=== PATIENT | female | born 1965 | race Caucasian/White ===

== ENCOUNTER 2017-08-06 14:00 | Inpatient (IN) | payer MEDICARE, MEDICAID ==
[~2017-08-06] VITALS: Ht 162.6 cm; Wt 139.0 kg
[2017-08-07] MEDS ORDERED: AMLO10 PO (15:00)
[2017-08-07] MEDS ORDERED: RANI300T PO (15:00)
[2017-08-07] MEDS ORDERED: AMBI10TA PO (15:00)
[2017-08-07] MEDS ORDERED: SOMA350T PO (15:00)
[2017-08-07] MEDS ORDERED: ALBUAER3 INH (15:00)
[2017-08-07] MEDS ORDERED: ALPR1TAB3 PO (15:00)
[2017-08-07] MEDS ORDERED: FURO1TAB62 PO (15:00)
[2017-08-07] MEDS ORDERED: ATOR10TA15 PO (15:00)
[2017-08-07] MEDS ORDERED: HYDR-3583 PO (15:00)
[2017-08-07] MEDS ORDERED: CELE20TA PO (15:00)
--- NOTE | 2017-08-09 15:26 | MH ---
cc: Ira COLEMAN M.D. DATE OF ADMISSION: 08/16/2017 ADMISSION DIAGNOSIS Osteoarthritic degeneration left knee, now being admitted for left total knee arthroplasty. ADMISSION HISTORY AND PHYSICAL This pleasant, morbidly obese 52-year-old female is being admitted today for left total knee arthroplasty due to severe painful osteoarthritic degeneration left knee. OTHER PAST HISTORY The patient has a history of hypertension, anxiety. CURRENT MEDICATIONS Include: 1. Amlodipine. 2. Omeprazole. 3. Lipitor. 4. [place]. 5. Xanax. PAST SURGERIES 1. Right total knee arthroplasty 2 years ago. 2. She also has had a cholecystectomy in the past. REVIEW OF SYSTEMS Noncontributory. FAMILY HISTORY Noncontributory. SOCIAL HISTORY She does not smoke or drink. ALLERGIES No known allergies. PHYSICAL EXAMINATION GENERAL: We find a 52-year-old female, well-developed, well-nourished, oriented x3, complains of pain in her left knee. VITAL SIGNS: Blood pressure 138/84, pulse 68 and regular, respirations 18, temperature 98.2, pulse oximetry 98% on room air. HEENT: Eyes PERRLA, EOMI. Ears, nose, mouth clear. NECK: Supple. LUNGS: Clear. HEART: Regular rate. ABDOMEN: Soft. Positive bowel sounds and nontender. EXTREMITIES: Reveal the left knee to be tender with crepitance on range of motion. Neurovascularly intact to her toes. IMPRESSION AT THIS TIME Severe painful osteoarthritic degeneration, left knee. PLAN Admission for left total knee arthroplasty today. The patient is given a prescription for postop pain and anticoagulation control in the office. Ira Coleman MD JRYesica/TLL /1:06 PM /3:12 PM
[2017-08-16] MEDS ORDERED: DEXAMETHASONE SOD PHOS 20 MG/5 ML VIAL IV PUSH SCH (06:30)
[2017-08-16] MEDS ORDERED: CHLORHEXIDINE GLUCONATE 2 % 1 PACK (2 CLOTHS) TOPICAL PRN (06:30)
[2017-08-16] MEDS ORDERED: CHLORHEXIDINE GLUCONATE 4% SOLN 120 ML BTL TOPICAL SCH (06:30)
[2017-08-16] MEDS ORDERED: SODIUM CHLORID 0.9% 500 ML IV PRN (06:30)
[2017-08-16] MEDS ORDERED: LACTATED RINGER'S 1000 ML IV PRN (06:30)
[2017-08-16] MEDS ORDERED: ceFAZolin 2 GM PREMIX 50 ML IV SCH (06:30)
[2017-08-16] MEDS ORDERED: VANCOMYCIN 1000 MG/NS 250 ML (for <70 kg) IV SCH ×2 (06:30)
[2017-08-16] MEDS ORDERED: METOPROLOL TARTRATE 25 MG TAB PO PRN (06:30)
[2017-08-16] MEDS ORDERED: POVIDONE IODINE 5% (ANTISEPSIS KIT) 4 APPLICATIONS EACH NARE PRN (06:30)
[2017-08-16] MEDS ORDERED: SODIUM CHLOR 0.9% 250 ML INJ 250 ML ONE ×2 (06:51→06:54)
[2017-08-16] MEDS ORDERED: BUPIVACAINE HCL PF 0.5% 30 ML VIAL ONE (06:58)
[2017-08-16] MEDS ORDERED: DEXAMETHASONE SOD PHOS PF 10 MG/ML VIAL ONE (06:58)
[2017-08-16] MEDS ORDERED: PROPOFOL 500 MG/50 ML INJ 0 ML ONE (06:58)
[2017-08-16] MEDS ORDERED: ceFAZolin INJ 1,000 MG VIAL ONE (07:01)
--- NOTE | 2017-08-16 07:55 | HHI.FF ---
Face to Face Verification Diagnosis: (1) Status post total left knee replacement Physical Therapy Gait training Knee: Total knee, Protocol: Left, Full weight bearing Canvas Knee Splint: When in bed & 2 pillows btw thighs Nursing RN: 3 days/week x 2 weeks Nursing: Dressing changes Dressing Changes: Daily dressing change, 4x4s, Gauze, Paper tape I have seen patient Florence Tafoya on 08/16/17. My clinical findings support the need for the requested home health care services because: Limited ability to care for self High risk of falls I certify that my clinical findings support that this patient is homebound because: Unsteady gait/balance Ira Coleman MD Aug 16, 2017 07:55
[2017-08-16] MEDS ORDERED: WALKER WHEELS/F1 MIS (07:57)
[2017-08-16] MEDS ORDERED: ADJUSTABLE COMM1 MIS (07:57)
[2017-08-16] MEDS ORDERED: CPMMACHINE (07:57)
[2017-08-16] MEDS ORDERED: TRANEXAMIC ACID INJ 0 MG in SODIUM CHLORIDE 0.9% INJ 100 ML IV SCH (08:00)
[2017-08-16] MEDS ORDERED: FUROSEMIDE 20 MG TAB PO PRN (08:00)
[2017-08-16] MEDS ORDERED: EXPAREL PERI-ARTICULAR INJECTION (TOTAL VOL. 120 ML) P-ARTICULR SCH ×2 (08:00)
[2017-08-16] MEDS ORDERED: SODIUM CHLORIDE 0.9% IV SCH ×2 (08:00→11:00)
[2017-08-16] MEDS ORDERED: TRANEXAMIC ACID IV SCH ×2 (08:00→11:00)
[2017-08-16] MEDS ORDERED: diphenhydrAMINE HCL 50 MG/ML VIAL IV PUSH PRN (08:15)
[2017-08-16] MEDS ORDERED: Post-op Orders (for Pharmacy) XX ONE (08:15)
[2017-08-16] MEDS ORDERED: ONDANSETRON HCL 4 MG/2 ML VIAL IVP PRN (08:15)
[2017-08-16] MEDS ORDERED: NALOXONE HCL 0.4 MG/ML AMP IV PUSH PRN (08:15)
[2017-08-16] MEDS ORDERED: ALBUTEROL SULFATE 90 MCG/ACT HFA 8 GM INHALER INH PRN (08:15)
[2017-08-16] MEDS ORDERED: ACETAMINOPHEN 325 MG TAB PO PRN (08:15)
[2017-08-16] MEDS ORDERED: HYDROmorphone HCL PF 2 MG/ML VIAL IV PUSH PRN (08:15)
[2017-08-16] MEDS ORDERED: DO NOT ADM ANY ANTICOAGULANT DRUGS PRN (11:57)
--- NOTE | 2017-08-16 11:59 | MP ---
cc: Ira COLEMAN M.D. DATE OF SURGERY 08/16/2017 PREOPERATIVE DIAGNOSIS Osteoarthritic degeneration left knee and morbidly obese. POSTOPERATIVE DIAGNOSIS Osteoarthritic degeneration left knee and morbidly obese. SURGERY PERFORMED Left total knee arthroplasty using Consensus components with Bespoke protocol. Sizes were 4 femur, 1 tibia, a 14 insert and a size 1 patella with two batches DePuy cement. SURGEON Dr. Coleman ASBESTOS SURVEYOR PRIYANKA Land ANESTHESIA General intubation and block. PROCEDURE WAS FOLLOWS After successful induction of anesthesia, the patient is placed on the operating room table in the supine position. The knee is prepped and draped in the usual manner. A tourniquet is inflated at the upper thigh and set to 300 mmHg pressure after exsanguination of the lower extremity. A longitudinal incision is made extending from 3 inches proximal to the superior pole of the patella, across the patella in longitudinal fashion, and down past the insertion of the tibial tubercle into the proximal tibia. The incision is carried down through subcutaneous tissue along the medial aspect of the patella and retinaculum, down through the capsule to expose the knee joint. The patella and patellar tendon are freed up enough to allow the patella to be inverted and retracted off the lateral side of the knee joint. The knee joint is left exposed. Small osteophytes are removed. All soft tissue is removed to allow proper position of the femoral and tibial cutting jig guide. The first femoral jig is then inserted along the distal end of the femur after first measuring to decide whether this is a small, medium, or large component. The notch is then drilled and the tibial cutting guide inserted into the femoral cutting guide, along with the ankle brace to allow for proper measurement of the tibial cutting surface that needed to be resected. Pins are inserted into the tibial cutting jig and femoral cutting jig to hold them in place. An oscillating saw is then used to resect the surface of the tibia. The surface of the tibia is then completely removed using sharp and blunt dissection. The anterior and posterior cuts of the femur are then made as well using an oscillating saw through the cutting guide. All guides are then removed and the varus/valgus angulation cutting guide applied to the femur for proper measurement of the proper amount of valgus. The anterior cutting guide for the femur is then inserted at the anterior femoral cuts made. Next, the first block trial is inserted into the femur to allow for proper condyle drill holes to be made which are then made followed by removal of the bone between the condyles using an oscillating saw as well as the bone removed at the most posterior surface of the condyle. After this, this guide is removed and the chamfer cuts made using the chamfer cutting guide from both anterior and posterior. Next, the femoral trial is then inserted, the tibial surface reflected anterior to expose the tibial surface and a tibial stem guide is inserted after first measuring for a standard, standard plus, large, or large plus surface to be used. After the stem is impacted the trial tibial surface is applied followed by the trial meniscal components. After full range of motion is found with the appropriate length meniscal components varying the patella is prepared by resecting the posterior aspect of the patella using an oscillating saw, inserting a trial. The trial is then removed and the cruciate cutting guide applied using the bur to cut the cruciate cuts. After cruciate cuts are made all trials are removed. The wound is irrigated copiously with antibiotic solution and Water-Pik and the actual components inserted into place using the aforementioned components. After the cement has hardened and the components are found to have full range of motion with no instability. No tourniquet was utilized throughout this case. A lateral retinacular release was necessary to allow the patella to track medially and some of it was repaired using interrupted #1 Vicryl suture. 120 cc's of Exparel was used around the knee joint for extra pain control. Deep fascia approximated with running #2 Quill. Subcutaneous tissue approximated in layers using 2-0 and 3-0 Monocryl sutures, Steri-Strips, and a sterile dressing and knee immobilizer. No drain was utilized. An extra hour of surgical time was needed as no tourniquet could be used on this case. Bleeding had to be controlled. The tissues had to be closed in multiple layers and also opened that way as the patient's BMI was 58.2. The patient's estimated blood loss was 450 cc's. The sponge and suture counts were correct. The patient tolerated the procedure well and left the operating room in satisfactory condition. PRIYANKA Land was present during the entire procedure to include patient positioning and the procedure. The medical necessity of nurse practitioner as a nurse first assist was indicated in this case due to the surgical complexity of the case itself and during the surgical case, the surgical services assistant was working the back table while my surgical garment assembler PRIYANKA was directly assisting me. J. MD JORGE Osman/LEISA /11:21 AM /11:29 AM
[2017-08-16] MEDS ORDERED: NEOSTIGMINE 5 MG/5 ML SYRINGE IV PUSH ONE (12:00)
[2017-08-16] MEDS ORDERED: GLYCOPYRROLATE 1 MG/5 ML SYRINGE IV PUSH ONE (12:00)
[2017-08-16] MEDS ORDERED: ePHEDrine/NS 25 MG/5 ML SYRINGE IV ONE (12:00)
[2017-08-16] MEDS ORDERED: ONDANSETRON HCL 4 MG/2 ML VIAL IV ONE (12:00)
[2017-08-16] MEDS ORDERED: LIDOCAINE HCL 1% PF 5 ML SYRINGE OTHER ONE (12:00)
[2017-08-16] MEDS ORDERED: PROPOFOL 200 MG/20 ML AMP IV ONE (12:00)
[2017-08-16] MEDS ORDERED: DEXAMETHASONE SOD PHOS 4 MG/ML VIAL IV ONE (12:00)
[2017-08-16] MEDS ORDERED: PHENYLEPH/NS 1000 MCG/10 ML SYR IV ONE (12:00)
[2017-08-16] MEDS ORDERED: ROCURONIUM INJ 50 MG/5 ML SYRINGE IV PUSH ONE (12:00)
[2017-08-16] MEDS ORDERED: LACTATED RINGER'S 1000 ML INJ 1,000 ML IV ONE (12:00)
[2017-08-16] MEDS ORDERED: VECURONIUM BROMIDE 20 MG VIAL IV ONE (12:00)
--- NOTE | 2017-08-16 12:00 | HHI.PR ---
Immediate Post Op Note Procedure Date: Aug 16, 2017 Pre Op Diagnosis: (1) Osteoarthritis of knee (2) Morbid obesity (3) Hypertension (4) Anxiety Osteoarthritic degeneration left knee Post Op Diagnosis: Osteoarthritic degeneration left knee Surgeon: Ira Coleman MD Mica Washer Gluer(s): Alia MATHEW Procedure: Left total Knee Arthroplasty Complications: none Estimated blood loss: 400 cc Anesthesia: General Drains: None IVF Urinary Output (mLs): 0 (No oley) Tourniquet time (min at mmHg) none Patient to: PACU Patient Condition: Good Implant/Devices: SEE IMPLANT LOG (if applicable) Date/Time of Procedure: SEE SURGICAL CARE RECORD Alia Adam Aug 16, 2017 11:59
[2017-08-16] MEDS: LACTATED RINGER'S 1000 ML INJ 1,000 ML IV SCH ×2 (12:15→20:13)
[2017-08-16] MEDS ORDERED: *HYDROmorphone PF 1 MG VIAL PERIprocedural Use ONLY ONE ×3 (12:19→13:16)
--- NOTE | 2017-08-16 12:40 | RADRPT ---
EXAM DATE/TIME: 08/16/2017 12:12 [facility] COMPARISON: No previous studies available for comparison. INDICATIONS : Post op, left knee replacement. MEDICAL HISTORY : None. SURGICAL HISTORY : Right total knee ENCOUNTER: Initial ACUITY: 1 day PAIN SCORE: 0/10 LOCATION: Left knee FINDINGS: Status post placement of a knee prosthesis. There is good position and alignment of the knee prosthes is with the bony structures. CONCLUSION: . Good Position and alignment on this postoperative study. Johnny Man MD on August 16, 2017 at 12:36 Board Certified Radiologist. This report was verified electronically.
[2017-08-16 14:35] VITALS: BP 116/78; PULSE 85; RESP 17; TEMP 98.7; O2SAT 98
[2017-08-16] MEDS: ACETAMINOPHEN/HYDROcodone 325 MG/10 MG TAB PO PRN ×3 (14:37→22:41)
[2017-08-16] MEDS: ALPRAZolam 1 MG TAB PO SCH ×3 (15:10→20:13)
[2017-08-16] MEDS: CITALOPRAM HYDROBROMIDE 20 MG TAB PO SCH (15:10)
[2017-08-16 17:00] VITALS: BP 142/90; PULSE 100; RESP 18; TEMP 98.6; O2SAT 99
[2017-08-16] MEDS: CARISOPRODOL 350 MG TAB PO PRN (18:33)
[2017-08-16 20:00] VITALS: BP 99/69; PULSE 117; RESP 18; TEMP 99; O2SAT 97
[2017-08-16] MEDS: FAMOTIDINE 20 MG TAB PO SCH (20:13)
[2017-08-16] MEDS: ZOLPIDEM TARTRATE 10 MG TAB PO PRN (20:13)
[2017-08-16] MEDS ORDERED: ALPRAZolam 1 MG TAB PO PRN (21:00)
[2017-08-17] VITALS (7 sets, daily range): BP systolic 110–166; BP diastolic 69–86; PULSE 79–110; RESP 14–18; TEMP 96.9–99.5; O2SAT 94–99
[2017-08-17 04:16] LABS: HEMATOCRIT 27.1 % (35.0-46.0)
[2017-08-17] MEDS: CARISOPRODOL 350 MG TAB PO PRN ×3 (06:00→17:36)
[2017-08-17] MEDS: ACETAMINOPHEN/HYDROcodone 325 MG/10 MG TAB PO PRN ×3 (06:01→17:36)
[2017-08-17] MEDS: FAMOTIDINE 20 MG TAB PO SCH ×2 (08:12→21:41)
[2017-08-17] MEDS: CITALOPRAM HYDROBROMIDE 20 MG TAB PO SCH (08:12)
[2017-08-17] MEDS: LACTATED RINGER'S 1000 ML INJ 1,000 ML IV SCH ×2 (08:13→21:45)
[2017-08-17] MEDS: ALPRAZolam 1 MG TAB PO SCH ×4 (08:13→21:41)
[2017-08-17] MEDS: APIXABAN 2.5 MG TABLET PO SCH ×2 (11:50→22:54)
--- NOTE | 2017-08-17 14:17 | PD.ORT.PN ---
Subjective Subjective Remarks Pt fairly comfortable at moment. Objective Vitals Vital Signs Date Time Temp Pulse Resp B/P (MAP) Pulse Ox O2 Delivery O2 Flow Rate FiO2 08/17/17 12:15 96.9 110 14 110/73 (85) 94 08/17/17 08:10 99.5 79 16 114/69 (84) 99 08/17/17 04:00 97.5 84 18 131/84 (100) 98 08/17/17 00:00 99.1 87 18 166/86 (112) 98 08/16/17 20:00 99.0 117 18 99/69 (79) 97 08/16/17 17:00 98.6 100 18 142/90 (107) 99 08/16/17 14:35 98.7 85 17 116/78 (91) 98 I/O 08/16/17 08/16/17 08/16/17 08/17/17 08/17/17 08/17/17 06:59 14:59 22:59 06:59 14:59 22:59 Intake Total 1810 ml 1580 ml 1060 ml Output Total 450 ml Balance 1360 ml 1580 ml 1060 ml Intake Oral 480 ml 480 ml IV Total 210 ml 1100 ml 580 ml Other 1600 ml Output Estimated Blood Loss 450 ml # Voids 3 4 # Bowel Movements 0 0 Result Diagram: 08/17/17 040 Objective Remarks Dressing dry and intact. NV intact to toes. In bed at present time. Assessment & Plan Ortho Post Op Day #: 1 Problem List: Assessment and Plan Cont PT and OOB, daily wound care. Home Sat or Sun. Ira Coleman MD Aug 17, 2017 14:17
[2017-08-17] MEDS: BISACODYL EC 5 MG TABEC PO SCH (21:00)
[2017-08-17] MEDS: MAGNESIUM HYDROXIDE SUSP 30 ML CUP PO SCH (21:40)
[2017-08-17] MEDS: POLYETHYLENE GLYCOL 17 GM PKG PO SCH (21:40)
[2017-08-17] MEDS: MULTIVITAMINS/MINERALS THERAPEUTIC TAB PO SCH (21:41)
[2017-08-17] MEDS: DOCUSATE SODIUM 100 MG CAP PO SCH (21:41)
[2017-08-17] MEDS: ZOLPIDEM TARTRATE 10 MG TAB PO PRN (22:54)
[2017-08-18] VITALS: BP 121/72; PULSE 95; RESP 16; TEMP 97.2; O2SAT 95
[2017-08-18] MEDS: CARISOPRODOL 350 MG TAB PO PRN ×3 (01:50→17:20)
[2017-08-18] MEDS: ACETAMINOPHEN/HYDROcodone 325 MG/10 MG TAB PO PRN ×4 (01:50→23:38)
[2017-08-18 06:04] LABS: HEMATOCRIT 27.9 % (35.0-46.0); HEMOGLOBIN 9.2 GM/DL (11.6-15.3)
[2017-08-18 07:55] VITALS: BP 133/72; PULSE 92; RESP 19; TEMP 96.3; O2SAT 95
[2017-08-18] MEDS: DOCUSATE SODIUM 100 MG CAP PO SCH ×2 (08:54→19:55)
[2017-08-18] MEDS: FAMOTIDINE 20 MG TAB PO SCH ×2 (08:54→19:56)
[2017-08-18] MEDS: CITALOPRAM HYDROBROMIDE 20 MG TAB PO SCH (08:54)
[2017-08-18] MEDS: BISACODYL EC 5 MG TABEC PO SCH (08:54)
[2017-08-18] MEDS: MAGNESIUM HYDROXIDE SUSP 30 ML CUP PO SCH ×2 (08:54→19:55)
[2017-08-18] MEDS: ALPRAZolam 1 MG TAB PO SCH ×4 (08:54→19:55)
[2017-08-18] MEDS: MULTIVITAMINS/MINERALS THERAPEUTIC TAB PO SCH ×2 (08:54→19:56)
[2017-08-18] MEDS: LACTATED RINGER'S 1000 ML INJ 1,000 ML IV SCH ×2 (08:59→20:50)
[2017-08-18] MEDS ORDERED: BACITRACIN OINT 0.9 GM PKT TOP PRN (10:15)
--- NOTE | 2017-08-18 10:43 | PD.ORT.PN ---
Subjective Subjective Remarks Pt fairly comfortable at moment. Objective Vitals Vital Signs Date Time Temp Pulse Resp B/P (MAP) Pulse Ox O2 Delivery O2 Flow Rate FiO2 08/18/17 07:55 96.3 92 19 133/72 (92) 95 08/18/17 00:00 97.2 95 16 121/72 (88) 95 08/17/17 20:00 97.5 103 18 111/69 (83) 95 08/17/17 18:21 98 21 08/17/17 17:37 97.0 92 17 138/84 (102) 98 08/17/17 12:15 96.9 110 14 110/73 (85) 94 I/O 08/17/17 08/17/17 08/17/17 08/18/17 08/18/17 08/18/17 07:00 15:00 23:00 07:00 15:00 23:00 Intake Total 1060 ml 960 ml 1440 ml 480 ml Balance 1060 ml 960 ml 1440 ml 480 ml Intake Oral 480 ml 960 ml 1440 ml 480 ml IV Total 580 ml # Voids 4 4 6 3 # Bowel Movements 0 0 0 0 Result Diagram: 08/18/17 0545 Objective Remarks Dressing dry and intact. NV intact to toes. Ambulating well with walker, No calf tenderness. Assessment & Plan Ortho Post Op Day #: 2 Problem List: Assessment and Plan Cont PT and OOB, daily wound care. Home Sun. Ira Coleman MD Aug 18, 2017 10:43
--- NOTE | 2017-08-18 10:46 | HHI.DS ---
Discharge Summary Admission Date Aug 16, 2017 at 05:55 Discharge Date: Aug 19, 2017 Admitting Diagnosis Osteoarthritic degeneration left knee Diagnosis: (1) Status post total left knee replacement Diagnosis: Principal ICD Codes: Z96.652 - Presence of left artificial knee joint Brief History This is a 52 year old female patient CBC/BMP: 08/18/17 0545 Significant Findings Laboratory Tests Test 08/17/17 04:08 08/18/17 05:45 Hemoglobin 9.0 GM/DL (11.6-15.3) 9.2 GM/DL (11.6-15.3) Hematocrit 27.1 % (35.0-46.0) 27.9 % (35.0-46.0) PE at Discharge Dressing dry and intact. NV intact to toes. Ambulating well with walker, No calf tenderness. Hospital Course Patient underwent a left total knee arthroplasty on day of admission. She received a course of prophylactic IV antibiotics and within 23 hours started on anticoagulation therapy. She continued to improve remaining afebrile vital signs stable and neurovascularly intact. She tolerated by mouth pain meds well and physical therapy. She tolerated food and fluids well and was discharged on third postoperative day to home with home healthcare in good condition with instructions for continuation of physical therapy daily wound care and follow- up in the office for recheck. Pt Condition on Discharge: Good Discharge Disposition: Disch w/ Home Health Serv Discharge Instructions Diet Instructions: As Tolerated, No Restrictions Activities You Can Perform: Weight Bearing as Seth, Shower Only-No Bath Activities to Avoid: Bathing, Driving Ira Coleman MD Aug 18, 2017 10:46
[2017-08-18 11:07] VITALS: BP 121/83; PULSE 102; RESP 19; TEMP 98.1; O2SAT 93
[2017-08-18] MEDS: APIXABAN 2.5 MG TABLET PO SCH ×2 (11:07→23:38)
[2017-08-18 15:36] VITALS: BP 147/72; PULSE 114; RESP 19; TEMP 97.1; O2SAT 95
[2017-08-18 19:03] VITALS: BP 133/79; PULSE 110; RESP 19; TEMP 96.7; O2SAT 93
[2017-08-18] MEDS: POLYETHYLENE GLYCOL 17 GM PKG PO SCH (19:55)
[2017-08-18 23:18] VITALS: BP 135/75; PULSE 98; RESP 19; TEMP 97.8; O2SAT 92
[2017-08-18] MEDS: ZOLPIDEM TARTRATE 10 MG TAB PO PRN (23:38)
[2017-08-19 03:58] VITALS: BP_SYST 115; BP_SYST 123; BP_DIAS 62; BP_DIAS 89; PULSE 83; RESP 17; RESP 18; TEMP 97.7; O2SAT 92; O2SAT 97
[2017-08-19] MEDS: CARISOPRODOL 350 MG TAB PO PRN (05:52)
[2017-08-19] MEDS: ACETAMINOPHEN/HYDROcodone 325 MG/10 MG TAB PO PRN ×2 (05:52→10:07)
[2017-08-19 07:54] VITALS: BP 109/64; PULSE 85; RESP 18; TEMP 97.9; O2SAT 95
[2017-08-19] MEDS: FAMOTIDINE 20 MG TAB PO SCH (09:12)
[2017-08-19] MEDS: ALPRAZolam 1 MG TAB PO SCH (09:12)
[2017-08-19] MEDS: MULTIVITAMINS/MINERALS THERAPEUTIC TAB PO SCH (09:12)
[2017-08-19] MEDS: DOCUSATE SODIUM 100 MG CAP PO SCH (09:12)
[2017-08-19] MEDS: CITALOPRAM HYDROBROMIDE 20 MG TAB PO SCH (09:12)
[2017-08-19] MEDS: BISACODYL EC 5 MG TABEC PO SCH (09:13)
[2017-08-19] MEDS: MAGNESIUM HYDROXIDE SUSP 30 ML CUP PO SCH (09:13)
[2017-08-19] MEDS: LACTATED RINGER'S 1000 ML INJ 1,000 ML IV SCH (11:15)
[2017-08-19] MEDS: APIXABAN 2.5 MG TABLET PO SCH (11:40)
== END 2017-08-19 11:49 | disposition home health service (06) | DRG 470 ==
LOC: HSDI 08-16 05:55 → N06A 08-16 14:09
PROVIDERS: ADMIT Surgery; ATTEND Surgery
PROC: 3E0T3BZ Introduction of Anesthetic Agent into Peripheral Nerves and Plexi, Percutaneous Approach (ICD-10-PCS; 2017-08-16)
PROC: 0SRD0J9 Replacement of Left Knee Joint with Synthetic Substitute, Cemented, Open Approach (ICD-10-PCS; principal; 2017-08-16 07:47)
DX: M17.12 Unilateral primary osteoarthritis, left knee (principal); E66.01 Morbid (severe) obesity due to excess calories; I10 Essential (primary) hypertension; F41.9 Anxiety disorder, unspecified; Z96.651 Presence of right artificial knee joint
CPT/HCPCS: 73560; 85014; 85018; 86850; 86900; 86901; 94150; C1776; C9290; J0690; J1100; J1170; J2370; J2405; J2710; J3370; J7050; J7120

== ENCOUNTER → 2017-08-07 | Outpatient (CLI) | payer MEDICARE ==
[~2017-08-07] MED LIST: ALBU1AER INH; ALBUAER3 INH; ALPR1TAB3 PO; AMBI10TA PO; AMLO10 PO; ATOR10TA15 PO; CELE20TA PO; FURO1TAB62 PO; FURO20 PO; HYDR-3583 PO; OMEP20TA39 PO; RANI300T PO; SOMA350T PO; Z.0.COMMODE-3:1; Z.0.CPM; Z.0.WALKERFRONT; ZOLP10TA3 PO
[2017-08-07 11:02] LABS: APTT (PATIENT) 26.6 SEC (24.3-30.1); PROTHROMBIN TIME - PATIENT 10.6 SEC (9.8-11.6)
[2017-08-07 11:09] LABS: BACTERIA, URINE OCC /hpf; BLOOD, URINE SMALL (NEG); COMMENT (UR) CATH-CULTURE IND; CULTURE IF INDICATED CATH CULTURE IND; GLUCOSE,URINE NEG (NEG); HYALINE CAST, URINE 2 /lpf (RARE); KETONE, URINE NEG (NEG); MUCUS URINE MANY /lpf (OCC); NITRITE,URINE NEG (NEG); SQUAMOUS EPITHELIAL CELL URINE 1 /hpf (0-5); TRANSITIONAL EPI CELLS, URINE <1 /hpf; URINE COLOR YELLOW (YELLW/STRAW)
== END ==
LOC: CPRE 09:35
PROVIDERS: ATTEND Surgery
DX: Z01.812 Encounter for preprocedural laboratory examination (principal)
CPT/HCPCS: 36415; 81001; 85610; 85730; 87086